=== PATIENT | male | born 1990 | race American Indian/Alaskan Native ===

== ENCOUNTER 2019-04-25 13:13 | Emergency (ER) | payer OTHER ==
[2019-04-25] MEDS ORDERED: TYLENOL PO ONE (13:39)
--- NOTE | 2019-04-25 13:39 | Emergency Department Report ---
Blank Doc - Documentation Documentation: 29 y o cc of throat pain right sided greater than left x 4 days denies hx of astma,cough, fever took goody powder yesterday rapid strep, ACC eval tylenol given in triage
[2019-04-25] MEDS ORDERED: ASPIRIN ONE (13:41)
[2019-04-25] MEDS ORDERED: TYLENOL ONE (13:42)
[2019-04-25 13:45] VITALS: BP 117/75
[2019-04-25] MEDS ORDERED: MOTRIN PO ONE (15:24)
[2019-04-25] MEDS ORDERED: LIDOCAINE VISCOUS 2% PO ONE (15:24)
[2019-04-25] MEDS ORDERED: ALUM-MAG HYDROX-SIMETH 200-200-20MG/5ML PO ONE (15:24)
--- NOTE | 2019-04-25 16:37 | XRay Report ---
PROCEDURE: XR CHEST ROUTINE 2V TECHNIQUE: PA and lateral chest radiographs were obtained. HISTORY: fever COMPARISONS: None. FINDINGS: Bilateral CP angles not completely imaged, limiting the examination for detection of pleural effusion . There is no visible pulmonary consolidation. No evidence of pneumothorax. No radiographically visible pleural effusion. Cardiac silhouette size is normal without vascular congestion. No visible acute displaced fracture in the regional skeleton. IMPRESSION: No acute cardiopulmonary disease in the visualized chest. This document is electronically signed by Tyler Griffin MD., April 25 2019 05:35:18 PM ET
--- NOTE | 2019-04-25 17:11 | Emergency Department Report ---
HPI - General Chief Complaint: Pain General Time Seen by Provider: 04/25/19 13:34 - HPI HPI: This is a 29-year-old male here reports that he had a fever and maximum of 100.5 and chills with sore throats and arm numbness. Pain is 4/10 and worse with swallowing to throat. No alleviating factors. No medication taken prior to coming to the emergency room. Denies any chest pain or shortness of breath. Denies any cough, neck pain or stiffness or headache. No numbness was this morning and but none now. No exposure to anyone with similar symptoms. Pain is achy and constant ED Past Medical Hx - Past Medical History Previous Medical History?: No - Surgical History Past Surgical History?: No - Family History Family history: no significant - Social History Smoking Status: Never Smoker Substance Use Type: None - Medications Home Medications: Home Medications Medication Instructions Recorded Confirmed Last Taken Type Furosemide [Lasix] 20 mg PO QDAY #10 tablet 10/09/18 Unknown Rx Clindamycin [Clindamycin CAP] 300 mg PO Q8H 10 Days #30 cap 04/25/19 Unknown Rx Ibuprofen [Motrin] 800 mg PO Q8HR PRN #12 tablet 04/25/19 Unknown Rx ED Review of Systems ROS: Stated complaint: ARM NUMBNESS Other details as noted in HPI Comment: All other systems reviewed and negative Constitutional: chills, fever Eyes: denies: eye pain, eye discharge ENT: throat pain. denies: ear pain, congestion Respiratory: denies: cough, shortness of breath, SOB with exertion, SOB at rest, stridor, wheezing Cardiovascular: denies: chest pain, palpitations, dyspnea on exertion, edema, syncope Gastrointestinal: denies: abdominal pain, nausea, vomiting, diarrhea, constipation, hematemesis, melena, hematochezia Genitourinary: denies: dysuria, frequency, hematuria, discharge, testicular pain, testicular mass Musculoskeletal: denies: back pain, joint swelling, arthralgia, myalgia Skin: denies: rash Neurological: numbness (intermittent to bilateral upper extremity). denies: headache, paresthesias, abnormal gait, vertigo Physical Exam - Physical Exam Vital Signs: Vital Signs 04/25/19 04/25/19 04/25/19 13:36 13:40 14:40 Temperature 100.2 F H Pulse Rate 99 H Respiratory 20 18 18 Rate Blood Pressure 117/75 O2 Sat by Pulse 100 Oximetry Vital Signs 04/25/19 04/25/19 04/25/19 13:36 13:40 14:40 Temperature 100.2 F H Pulse Rate 99 H Respiratory 20 18 18 Rate Blood Pressure 117/75 O2 Sat by Pulse 100 Oximetry 04/25/19 17:31 Temperature 98.9 F Pulse Rate Respiratory Rate Blood Pressure O2 Sat by Pulse Oximetry General: 29-year-old male well-nourished well-developed in no acute distress. Physical Exam: Head: Normocephalic atraumatic. Nontender to palpate. Mouth: Oral mucosa moist, tongue is normal, uvula is midline, no VESSEL SCRAPPER or drooling, oral airways patent and uvula is midline. Positive erythema with exudates to oropharynx. Lungs: Clear to auscultated bilaterally, no rhonchi wheezes or rales. No use of accessory muscles. No chest wall tenderness NECK: Supple, Positive anterior cervical adenopathy, full range of motion, no meningeal sign CV: S1, S2. Regular rate rhythm negative murmur. Eyes: Bilateral pupils equal and reactive to light, conjunctival injection or icterus. Bilateral EOM intact and normal accommodation. No nystagmus. Lids are normal. nontender to palpate. No induration and no sign of cellulitis. Skin: Clean dry and intact, no rash or lesions. Neurological: No gross neurological deficit. normal motor and sensory function. Extremity: No cce. + 2 pulses in all extremities, no neurovascular compromise.No laceration, bruises then or contusion noted to extremities. Negative Homans signs bilaterally. No palpable cord bilateral lower extremity. Musculoskeletal: Range of motion in all extremities, no joint crepitus, erythema or effusion. Skin: Clean dry and intact, no rashes no lesions Mood: Normal mood and behavior ED Course Vital Signs 04/25/19 04/25/19 04/25/19 13:36 13:40 14:40 Temperature 100.2 F H Pulse Rate 99 H Respiratory 20 18 18 Rate Blood Pressure 117/75 O2 Sat by Pulse 100 Oximetry Vital Signs 04/25/19 04/25/19 04/25/19 13:36 13:40 14:40 Temperature 100.2 F H Pulse Rate 99 H Respiratory 20 18 18 Rate Blood Pressure 117/75 O2 Sat by Pulse 100 Oximetry - Reevaluation(s) Reevaluation #1: 04/25/19 17:22 Patient received Tylenol in triage area for fever and he received an additional 600 mg of Motrin in the ED. Strep and mono test is negative and chest x-ray wi thout any acute findings. Patient able to tolerate fluids in the emergency room and temperature is better at present ED Medical Decision Making - Lab Data Lab Results 04/25/19 04/25/19 Range/Units 15:35 Unknown Monoscreen Negative (Negative) Group A Strep Rapid Negative (Negative) - Radiology Data Radiology results: report reviewed Findings [facility] [address] [place] [address] XRay Report Signed Patient: ROSS GTZ MR#: [id number] : 1990 Acct:[id number] Age/Sex: 29 / M ADM Date: 04/25/19 Loc: ED Attending Dr: Ordering Physician: MARTIN HOOPER Date of Service: 04/25/19 Procedure(s): XR chest routine 2V Accession Number(s): [id number] cc: MARTIN HOOPER Fluoro Time In Minutes: PROCEDURE: XR CHEST ROUTINE 2V TECHNIQUE: PA and lateral chest radiographs were obtained. HISTORY: fever COMPARISONS: None. FINDINGS: Bilateral CP angles not completely imaged, limiting the examination for detection of pleural effusion. There is no visible pulmonary consolidation. No evidence of pneumothorax. No radiographically visible pleural effusion. Cardiac silhouette size is normal without vascular congestion. No visible acute displaced fracture in the regional skeleton. IMPRESSION: No acute cardiopulmonary disease in the visualized chest. This document is electronically signed by Tyler Griffin MD., April 25 2019 05:35:18 PM ET Transcribed By: MARGARITO Dictated By: TYLER GRIFFIN MD Electronically Authenticated By: TYLER GRIFFIN MD Signed Date/Time: 04/25/19 1637 DD/ 24 TD/TT: 04/25/191524 - Medical Decision Making This is a 29-year-old male here report that he has fever and chills with sore throat and intermittent numbness to his upper arms. Patient physical exam is normal including neurological examination except he has erythema oropharynx with exudate, positive cervical adenopathy, Anteriorly and he has a low-grade fever. Patient was given Tylenol and later Motrin and ED . Chest x-ray dictated radiologist report reviewed by myself and normal findings. I discussed all findings the patient home with diagnosis, medication treatment plan and he voiced understanding patient will be treated for exudative pharyngitis despite findings on strep he has a large cervical lymph nodes, sore throat with redness and exudates and fever and based on [facility] criteria, I will treat patient for strep. Patient discharged home in stable condition, photosensitivity is afebrile. Pain is controlled and discharged home with family prescription for Motrin and clindamycin and to follow-up with his primary care in 2-3 days or if his symptoms worsen to return to emergency room - Differential Diagnosis PNA, strep pharyngitis, viral syndrome to include mono Critical care attestation.: If time is entered above; I have spent that time in minutes in the direct care of this critically ill patient, excluding procedure time. ED Disposition Clinical Impression: Exudative pharyngitis, Fever in adult Disposition: DC-01 TO HOME OR SELFCARE Is pt being admited?: No Does the pt Need Aspirin: No Condition: Stable Instructions: Fever in Adults (ED), Pharyngitis (ED) Additional Instructions: Follow up with primary care physician in 2-3 days If his symptoms worsen, please return to emergency room Take Motrin with food as prescribed. Gargle warm salt water distal help reduce sore throat Increase fluid intake Take antibiotic as prescribed Referrals: REJI WOLF MD [Primary Care Provider] - 3-5 Days Forms: Work/School Release Form(ED), Accompanied Note
== END 2019-04-25 18:01 | disposition home or self-care (01) ==
LOC: ED 13:13
DX: J02.9 Acute pharyngitis, unspecified (principal)
CPT/HCPCS: 36415; 71046; 86308; 87116; 87430; 99284

== ENCOUNTER 2021-08-20 03:49 | Emergency (ER) | payer SELFPAY ==
[2021-08-20] MEDS ORDERED: HYDROcodone/ACETAMINOPHEN 7.5-325MG TAB PO ONE (04:26)
[2021-08-20] MEDS ORDERED: IBUPROFEN 600 MG TAB PO ONE (04:26)
[2021-08-20] MEDS ORDERED: ONDANSETRON 4 MG ODT TAB PO ONE (04:26)
[2021-08-20 04:28] VITALS: BP 135/100
--- NOTE | 2021-08-20 04:31 | Emergency Department Report ---
ED General Adult HPI - General Stated complaint: TOOTACHE - History of Present Illness Initial comments: Patient is a 31-year-old -[place] male with no past medical history who presents to the ED with complaint of acute onset persistent severe painful swollen right maxillary gingiva with painful right maxillary premolar and molar toothaches for the last 1 month, worse in the last 1 week. Patient states that he initially was evaluated by dentist who placed him on oral antibiotics twice a day and he took all the antibiotic as was instructed and finish them all but the pain and swelling of been persistent. Patient states that in the last 2 days he has not been able to sleep or eat because of worsening pain. Patient denies dizziness, syncope, fever, chills, nausea, vomiting, sore throat, headache, chest pain or shortness of breath, traumatic injury or neck pain. MD Complaint: Dental pain; swollen gums -: Sudden, month(s) (1) Location: mouth Severity scale (0 -10): 9 Quality: aching, sharp Consistency: constant Improves with: none Worsens with: none Associated Symptoms: denies other symptoms. denies: confusion, chest pain, cough, diaphoresis, fever/chills, headaches, loss of appetite, malaise, nausea/vomiting, rash, seizure, shortness of breath, syncope, weakness Treatments Prior to Arrival: NSAID - Related Data Previous Rx's Medication Instructions Recorded Last Taken Type Furosemide [Lasix] 20 mg PO QDAY #10 tablet 10/09/18 Unknown Rx Ibuprofen [Motrin] 800 mg PO Q8HR PRN #12 tablet 04/25/19 Unknown Rx Acetaminophen/Codeine [Tylenol 1 tab PO Q6H PRN #10 tab 08/20/21 Unknown Rx /Codeine # 3 tab] Clindamycin [Clindamycin CAP] 300 mg PO Q8H 10 Days #30 cap 08/20/21 Unknown Rx Ketorolac [Toradol] 10 mg PO Q8H PRN #20 tablet 08/20/21 Unknown Rx Allergies Allergy/AdvReac Type Severity Reaction Status Date / Time No Known Allergies Allergy Verified 08/20/21 04:28 ED Review of Systems ROS: Stated complaint: TOOTACHE Other details as noted in HPI Constitutional: denies: chills, fever Eyes: denies: eye pain, eye discharge, vision change ENT: dental pain (Right maxillary premolar molar toothache with swollen gums). denies: ear pain, throat pain Respiratory: denies: cough, shortness of breath, wheezing Cardiovascular: denies: chest pain, palpitations Endocrine: no symptoms reported Gastrointestinal: denies: abdominal pain, nausea, diarrhea Genitourinary: denies: urgency, dysuria Musculoskeletal: denies: back pain, joint swelling, arthralgia Skin: denies: rash, lesions Neurological: denies: headache, weakness, paresthesias Psychiatric: denies: anxiety, depression Hematological/Lymphatic: denies: easy bleeding, easy bruising ED Past Medical Hx - Social History Smoking Status: Never Smoker Substance Use Type: None - Medications Home Medications: Home Medications Medication Instructions Recorded Confirmed Last Taken Type Furosemide [Lasix] 20 mg PO QDAY #10 tablet 10/09/18 Unknown Rx Ibuprofen [Motrin] 800 mg PO Q8HR PRN #12 tablet 04/25/19 Unknown Rx Acetaminophen/Codeine [Tylenol 1 tab PO Q6H PRN #10 tab 08/20/21 Unknown Rx /Codeine # 3 tab] Clindamycin [Clindamycin CAP] 300 mg PO Q8H 10 Days #30 cap 08/20/21 Unknown Rx Ketorolac [Toradol] 10 mg PO Q8H PRN #20 tablet 08/20/21 Unknown Rx ED Physical Exam - General General appearance: alert, in no apparent distress - Head Head exam: Present: atraumatic, normocephalic, normal inspection - Eye Eye exam: Present: normal appearance, PERRL, EOMI Pupils: Present: normal accommodation - ENT ENT exam: Present: mucous membranes moist, TM's normal bilaterally, normal external ear exam, other (Swollen, severely tender right maxillary gingiva with severely tender right maxillary premolar and molar teeth) - Neck Neck exam: Present: normal inspection, full ROM - Respiratory Respiratory exam: Present: normal lung sounds bilaterally. Absent: respiratory distress, wheezes, rales, rhonchi, chest wall tenderness, accessory muscle use, decreased breath sounds, prolonged expiratory - Cardiovascular Cardiovascular Exam: Present: regular rate, normal rhythm, normal heart sounds. Absent: systolic murmur, diastolic murmur, rubs, gallop - GI/Abdominal GI/Abdominal exam: Present: soft, normal bowel sounds. Absent: tenderness, guarding, rebound, hyperactive bowel sounds, hypoactive bowel sounds, organomegaly - Extremities Exam Extremities exam: Present: normal inspection, full ROM, normal capillary refill - Back Exam Back exam: Present: normal inspection, full ROM. Absent: tenderness, CVA tenderness (R), CVA tenderness (L), muscle spasm, paraspinal tenderness - Neurological Exam Neurological exam: Present: alert, oriented X3, CN II-XII intact, normal gait, reflexes normal - Psychiatric Psychiatric exam: Present: normal affect, normal mood - Skin Skin exam: Present: warm, dry, intact, normal color. Absent: rash ED Medical Decision Making - Medical Decision Making This is a 31-year-old -[place] male with no past medical history who presents to the ED with complaint of acute onset persistent severe painful swollen right maxillary gingiva with painful right maxillary premolar and molar toothaches for the last 1 month, worse in the last 1 week. Patient states that he initially was evaluated by dentist who placed him on oral antibiotics twice a day and he took all the antibiotic as was instructed and finish them all but the pain and swelling of been persistent. Patient states that in the last 2 days he has not been able to sleep or eat because of worsening pain. In the ED, patient is alert and oriented x3 and is not in distress but appears to be in significant pain. Patient was treated for pain in the ED. On reevaluation, patient's pain is well controlled medications. Patient will discharge home on pain medications and antibiotics and advised to follow-up with his dentist in 7 to 10 days for reevaluation. Patient is advised return to the ED immediately if symptoms get worse. - Differential Diagnosis Dental abscess; gingivitis; dental caries; Critical care attestation.: If time is entered above; I have spent that time in minutes in the direct care of this critically ill patient, excluding procedure time. ED Disposition Clinical Impression: Dental abscess, Dental caries, Acute gingivitis Disposition: 01 HOME / SELF CARE / HOMELESS Is pt being admited?: No Does the pt Need Aspirin: No Condition: Stable Instructions: Dental Abscess, [id number], Trench Mouth Additional Instructions: Take medication with food, drink plenty of fluids and follow-up with your primary care physician or dentist in 7 to 10 days for reevaluation. Return to the ED immediately if symptoms get worse. Prescriptions: Clindamycin [Clindamycin CAP] 300 mg PO Q8H 10 Days #30 cap Ketorolac [Toradol] 10 mg PO Q8H PRN #20 tablet PRN Reason: Pain Acetaminophen/Codeine [Tylenol /Codeine # 3 tab] 1 tab PO Q6H PRN #10 tab PRN Reason: Severe pain Referrals: [facility] [Outside] - 7-10 days Time of Disposition: 04:31 Print Language: MONGOLIAN
== END 2021-08-20 04:48 | disposition home or self-care (01) ==
LOC: ED 03:49
DX: K04.7 Periapical abscess without sinus (principal); K02.9 Dental caries, unspecified; K05.00 Acute gingivitis, plaque induced; Z79.899 Other long term (current) drug therapy
CPT/HCPCS: 99282; Q0162

== ENCOUNTER 2021-09-10 02:04 | Emergency (ER) | payer SELFPAY ==
--- NOTE | 2021-09-10 02:27 | Emergency Department Report ---
ED General Adult HPI - General Chief complaint: Extremity Injury, Upper Stated complaint: FINGER INJURY Time Seen by Provider: 09/10/21 02:21 Source: patient Mode of arrival: Ambulatory Limitations: No Limitations - History of Present Illness Initial comments: 31-year-old [id number] male patient presents to the emergency department with complaints of an injury to his left index finger occurring approximately 14 hours ago. Patient states he accidentally slammed his finger in a door. Tetanus is up-to-date. No other injuries. - Related Data Previous Rx's Medication Instructions Recorded Last Taken Type Furosemide [Lasix] 20 mg PO QDAY #10 tablet 10/09/18 Unknown Rx Ibuprofen [Motrin] 800 mg PO Q8HR PRN #12 tablet 04/25/19 Unknown Rx Acetaminophen/Codeine [Tylenol 1 tab PO Q6H PRN #10 tab 08/20/21 Unknown Rx /Codeine # 3 tab] Clindamycin [Clindamycin CAP] 300 mg PO Q8H 10 Days #30 cap 08/20/21 Unknown Rx Ketorolac [Toradol] 10 mg PO Q8H PRN #20 tablet 08/20/21 Unknown Rx cephALEXin [Keflex] 500 mg PO Q8HR 7 Days cap 09/10/21 Unknown Rx traMADoL [Ultram 50 MG tab] 50 mg PO Q4HR PRN #10 tablet 09/10/21 Unknown Rx Allergies Allergy/AdvReac Type Severity Reaction Status Date / Time No Known Allergies Allergy Verified 08/20/21 04:28 ED Review of Systems ROS: Stated complaint: FINGER INJURY Other details as noted in HPI Other: GENERAL: Negative for fever. CARDIOVASCULAR: Negative for chest pain. PULMONARY: Negative for shortness of breath. GASTROINTESTINAL: Negative for abdominal pain. MUSCULOSKELETAL: Positive for joint pain. NEUROLOGICAL: Negative for headache. INTEGUMENTARY: Positive for abrasion. ED Past Medical Hx - Past Medical History Previous Medical History?: No - Surgical History Past Surgical History?: No - Social History Smoking Status: Never Smoker Substance Use Type: None - Medications Home Medications: Home Medications Medication Instructions Recorded Confirmed Last Taken Type Furosemide [Lasix] 20 mg PO QDAY #10 tablet 10/09/18 Unknown Rx Ibuprofen [Motrin] 800 mg PO Q8HR PRN #12 tablet 04/25/19 Unknown Rx Acetaminophen/Codeine [Tylenol 1 tab PO Q6H PRN #10 tab 08/20/21 Unknown Rx /Codeine # 3 tab] Clindamycin [Clindamycin CAP] 300 mg PO Q8H 10 Days #30 cap 08/20/21 Unknown Rx Ketorolac [Toradol] 10 mg PO Q8H PRN #20 tablet 08/20/21 Unknown Rx cephALEXin [Keflex] 500 mg PO Q8HR 7 Days cap 09/10/21 Unknown Rx traMADoL [Ultram 50 MG tab] 50 mg PO Q4HR PRN #10 tablet 09/10/21 Unknown Rx ED Physical Exam - General Limitations: No Limitations - Other Other exam information: General: Awake, appropriately interactive, no acute distress. Neck: Supple. Full range of motion intact. Cardiovascular: Normal peripheral perfusion. Pulmonary: No respiratory distress. Patient is speaking normally without use of accessory muscles. Skin: No apparent rashes or lesions. Neurological: No facial asymmetry. Speech is clear. Follows commands. Patient is alert and oriented. Musculoskeletal: Tenderness to palpation along the distal aspect of the left index finger with overlying soft tissue swelling and superficial laceration overlying the dorsal surface extending into the nail bed. The nail is not displaced. There is no subungual hematoma. Distal neurovascular and motor/sensory function intact. Psych: Cooperative. Appropriate mood and affect. ED Medical Decision Making - Radiology Data [facility] [address] [place] [address] XRay Report Signed Patient: ROSS GTZ MR#: [id number] : 1990 Acct:[id number] Age/Sex: 31 / M ADM Date: 09/10/21 Loc: ED Attending Dr: Ordering Physician: MARTIN WALTERS Date of Service: 09/10/21 Procedure(s): XR hand 3+V LT Accession Number(s): [id number] cc: MARTIN WALTERS Fluoro Time In Minutes: . LEFT HAND 3 VIEW(S) INDICATION / CLINICAL INFORMATION: crush injury, distal left 2nd index finger COMPARISON: None available. FINDINGS: BONES / JOINT(S): There is a nondisplaced fracture through the dorsal aspect of the distal phalanx of the second digit. No significant arthritis. SOFT TISSUES: No significant abnormality. ADDITIONAL FINDINGS: None. Signer Name: Dajuan Cano DO Signed: 09/10/2021 4:11 AM Workstation Name: [id number] Transcribed By: LAYNE Dictated By: DAJUAN CANO DO Electronically Authenticated By: DAJUAN CANO DO Signed Date/Time: 09/10/21410 DD/ 9 TD/TT: - Medical Decision Making Differential diagnosis including but not limited to: sprain, strain, fracture, contusion, dislocation On reevaluation, patient remains stable. Repeat neurovascular exam remains intact. X-ray shows nondisplaced fracture through the dorsal aspect of the distal phalanx of the second digit. Pressure dressing applied. Finger splint applied. Laceration is superficial and not an appropriate candidate for primary closure since it has already been open for over 12 hours. Patient will be discharged home with short course of antibiotics due to concomitant fracture and short course of appropriate analgesics. Patient expressed understanding and is agreeable to plan of care. RICE precautions discussed. Strict return precautions provided. History, exam, diagnostic testing, and current condition do not suggest worrisome pathology to warrant further testing, continued ED treatment, admission, or surgical evaluation at this point. Given the low probability of a significant medical illness, it would be more likely to result in harm than benefit to perform further testing at this stage. Discussed findings, presumptive diagnosis, need for follow-up and specific signs/symptoms that should prompt immediate return to the emergency department. Instructions were explained in detail to the patient in addition to giving written discharge information. Patient expressed understanding and was given the opportunity to ask questions, all of which were satisfactorily answered prior to discharge home. Critical care attestation.: If time is entered above; I have spent that time in minutes in the direct care of this critically ill patient, excluding procedure time. ED Disposition Clinical Impression: Finger fracture, left Qualifiers: Encounter type: initial encounter Finger: index finger Fracture type: open Phalanx: distal Fracture alignment: nondisplaced Qualified Code(s): S62.661B - Nondisplaced fracture of distal phalanx of left index finger, initial encounter for open fracture Disposition: HOME / SELF CARE / HOMELESS Is pt being admited?: No Does the pt Need Aspirin: No Condition: Stable Instructions: Finger Fracture, Adult Additional Instructions: Take Keflex with food as directed. Take Tylenol every 4 hours and Motrin every 8 hours as needed for pain. If these medications are not sufficient in controlling your pain, take Tramadol with food as directed. Do not drive or operate machinery while taking this medication. Do not consume alcohol with taking this medication. Keep wound clean and covered. Change dressing daily. Wear finger splint as directed. Keep left hand elevated as often as possible to reduce swelling. Follow-up with Dr. Karimi, orthopedics, this week. Call Saturday to schedule an appointment. See referral information below. Bring a copy of today's notes with you to your follow-up appointment. Return to the emergency department immediately for new or worsening symptoms. Prescriptions: cephALEXin [Keflex] 500 mg PO Q8HR 7 Days cap traMADoL [Ultram 50 MG tab] 50 mg PO Q4HR PRN #10 tablet PRN Reason: Pain Referrals: CHRIS KARIMI MD [Staff Physician] - 3-5 Days Time of Disposition: 04:44
[2021-09-10] MEDS ORDERED: NEOMY 3.5 MG/BACIT 400 UNITS/POLY B 5000 UNITS/GM OINT PACKET TP ONE (03:01)
--- NOTE | 2021-09-10 04:16 | XRay Report ---
. LEFT HAND 3 VIEW(S) INDICATION / CLINICAL INFORMATION: crush injury, distal left 2nd index finger COMPARISON: None available. FINDINGS: BONES / JOINT(S): There is a nondisplaced fracture through the dorsal aspect of the distal phalanx of the second digit. No significant arthritis. SOFT TISSUES: No significant abnormality. ADDITIONAL FINDINGS: None. Signer Name: Dajuan Mcfarland DO Signed: 09/10/2021 4:11 AM Workstation Name: [id number]
[2021-09-10 04:58] VITALS: BP 122/74
== END 2021-09-10 04:57 | disposition home or self-care (01) ==
LOC: ED 02:04
DX: S62.661A Nondisplaced fracture of distal phalanx of left index finger, initial encounter for closed fracture (principal); Z79.899 Other long term (current) drug therapy; W23.0XXA Caught, crushed, jammed, or pinched between moving objects, initial encounter; Y93.89 Activity, other specified; Y92.89 Other specified places as the place of occurrence of the external cause; Y99.8 Other external cause status
CPT/HCPCS: 29130; 73130; 99283; A6250